=== PATIENT | female | born 1965 | race African-American/Black ===

== ENCOUNTER 2021-02-02 10:55 | Inpatient (IN) | payer OTHER ==
[~2021-02-02] VITALS: Ht 157.5 cm; Wt 70.3 kg
[2021-02-02 10:55] VITALS: BP 165/88
[2021-02-02 11:49] LABS: URINE BILIRUBIN NEGATIVE (Negative); URINE BLOOD TRACE (Negative); URINE CLARITY SL CLOUDY; URINE COLOR YELLOW; URINE GLUCOSE-RANDOM* NEGATIVE (Negative); URINE KETONES NEGATIVE (Negative); URINE PROTEIN (DIPSTICK) 1+ (Negative); URINE SPECIFIC GRAVITY 1.015 (1.005-1.035); URINE UROBILINOGEN 0.2 E.U./dl (0.2-1.0)
[2021-02-02 11:59] LABS: URINE LEUKOCYTES-REFLEX 3+ (Negative); URINE NITRITE-REFLEX POSITIVE (Negative)
[2021-02-02 12:24] LABS: CALCIUM OXALATE 0-3 Few /LPF (None Seen)
[2021-02-02 12:27] LABS: BACTERIA-REFLEX >30 Many /HPF (None Seen); SQUAMOUS 0-3 Few /LPF (0-3); URINE RBC None Seen /HPF (NONE SEEN); URINE WBC-REFLEX >25 Many /HPF (0-5)
[2021-02-02 12:28] LABS: FINE GRANULAR CASTS 0-3 Few /LPF (None Seen); RENAL EPITHELIAL CELLS 0-3 Few /LPF (None Seen)
[2021-02-02 13:25] LABS: ABSOLUTE NEUTROPHILS 5.8 thou/uL (1.4-8.2); BASOPHILS 0.4 % (0.0-2.0); EOSINOPHILS 1.1 % (0.0-3.0); HEMATOCRIT 28.6 % (37.0-47.0); HEMOGLOBIN 9.6 gm/dL (12.0-15.0); LYMPHOCYTES 10.3 % (24.0-44.0); MCH 30.5 pg (26.0-34.0); MCHC 33.7 g/dL (28.0-37.0); MCV 90.7 fL (80.0-100.0); MONOCYTES 6.9 % (1.0-8.0); PLATELET COUNT 288 thou/uL (150-400); POLYS 81.3 % (36.0-66.0); RBC 3.15 mil/uL (4.20-5.00); WBC 7.1 thou/uL (4.0-11.0)
[2021-02-02 13:38] LABS: ALBUMIN 2.7 g/dL (3.4-5.0); CREATININE 4.2 mg/dL (0.6-1.0); TOTAL BILIRUBIN 0.2 mg/dL (0.2-1.0); TOTAL PROTEIN 7.3 g/dL (6.4-8.2)
--- NOTE | 2021-02-02 13:48 | NUR ---
[phone] WALTER HENDRIX- SPOUSE
[2021-02-02 13:57] LABS: CALCIUM 13.5 mg/dL (8.5-10.1)
[2021-02-02 15:44] VITALS: BP 174/92
[2021-02-02 17:26] VITALS: BP 184/95
[2021-02-02] MEDS ORDERED: BACLOFEN 10MG T10 MG PO (17:37)
[2021-02-02] MEDS ORDERED: AMLODIPINE BESY10 MG PO (17:37)
[2021-02-02] MEDS ORDERED: HYDRALAZINE 2525 M1 PO (17:38)
[2021-02-02] MEDS ORDERED: LEVOTHYROXINE50 MCG PO (17:40)
[2021-02-02] MEDS ORDERED: VENLAFAXINE H37.5 M1 PER TUBE (17:41)
[2021-02-02] MEDS ORDERED: CARVEDILOL6.25 M1 PO (17:42)
[2021-02-02] MEDS ORDERED: LEVETIRACE100 MG/1 M PER TUBE (17:42)
[2021-02-02] MEDS ORDERED: CLOPIDOGREL75 MG PO (17:43)
[2021-02-02] MEDS ORDERED: NORVASC5 MG PO (17:43)
[2021-02-02] MEDS ORDERED: LIPITOR 40 MG T40 M1 PO (17:44)
--- NOTE | 2021-02-02 18:34 | NUR ---
PATIENT ADMITTED TO ROOM 360 FROM ED. PATIENT'S AT BEDSIDE TO GIVE HISTORY AND INFORMATION. VSS. NO WOUNDS NOTED DURING SKIN ASSESSMENT. ESPINAL NOTED TO BE DRAINING YELLOW URINE WITH SEDIMENT. PATIENT IS NON VERBAL AND FLACCID, PATIENT'S REPORTS PATIENT IS ABLE TO COMMUNICATE NONVERBALLY. ORBITAL EDEMA AND ORAL EDEMA NOTED. WEDGES FOR TURNING ORDERED. MED REC COMPLETED. SPOKE WITH DR. BANERJEE ABOUT 'S SCHEDULE WITH PATIENT AND HE WILL ASSESS DIET WITH [employer] OFFICER.
[2021-02-02 19:25] VITALS: BP 161/64
[2021-02-03 03:18] VITALS: BP 117/71
[2021-02-03 03:28] LABS: HEMATOCRIT 24.1 % (37.0-47.0); HEMOGLOBIN 8.2 gm/dL (12.0-15.0); MCH 31.1 pg (26.0-34.0); MCV 91.5 fL (80.0-100.0); RBC 2.63 mil/uL (4.20-5.00); WBC 3.6 thou/uL (4.0-11.0)
[2021-02-03 03:37] VITALS: BP 117/77
[2021-02-03 03:47] LABS: ALBUMIN 2.5 g/dL (3.4-5.0); PHOSPHORUS 6.1 mg/dL (2.5-4.9); POTASSIUM 4.4 mmol/L (3.5-5.1)
[2021-02-03 04:22] LABS: CALCIUM 12.4 mg/dL (8.5-10.1)
[2021-02-03 08:25] VITALS: BP 147/84
--- NOTE | 2021-02-03 09:48 | NUR ---
ORDERS RECEIVED FOR EVAL AND TREAT. Pt IS DEPENDENT WITH HER CARES AND MOBILITY. SPOKE WITH SPOUSE WHO STATES HE PROVIDES ALL CARE AND Pt DOES DANIELLE LIFT TO HER ELECTRIC WHEELCHAIR. Pt NOT A CANDIDATE FOR THERAPY IN THE ACUTE SETTING SHE IS DEPENDENT AND THERE ARE NO FUNCTIONAL GOALS.
[2021-02-03 10:53] LABS: CREATININE 4.3 mg/dL (0.6-1.0); PHOSPHORUS 5.5 mg/dL (2.6-4.7)
[2021-02-03 10:55] LABS: CALCIUM 13.5 mg/dL (8.5-10.1)
--- NOTE | 2021-02-03 11:08 | NUR ---
Nepro bolus feeds 5 cans/day with 85 ml H2O flushes before and after each bolus to provide 2125 kcal, 99 gm pro, 1983 ml fluid. Monitor for tolerance.
--- NOTE | 2021-02-03 15:08 | NUR ---
INITIAL ASSESSMENT: Received consult. SW reviewed chart and spoke with nursing and attending physician. Pt was admitted from home due to UTI/LATANYA. Pt with hx of CVA in May 2020. Pt has trach and peg tube in place. SW met with pt and spouse at bedside. Introduced role of SW. Pt's spouse provided info for assessment, as pt is nonverbal. Pt's spouse is the primary caregiver. Pt has been in hospital in [place], [place]. Locally, pt has been at [facility] and [facility]. Pt and spouse live at home. Pt has all DME in place including blane lifts, electric w/c, hospital bed and trach/peg supplies. Pt's spouse states pt does not currently have a PCP. SW offered to provide info for PCPs. Pt's spouse declines and states that he is going through options with her insurance. Pt had a neuro appt scheduled at [facility] recently and it had to be cancelled due to transportation issues. This appt has been rescheduled for April. Pt's spouse states they will likely establish primary care at [facility]. Plan is for pt to discharge home when medically stable. Pt's spouse is open to HH if recommended. SW is following to assist as needed with discharge planning.
--- NOTE | 2021-02-03 15:37 | NUR ---
PATIENT IS NON VERBAL. PATIENT'S IS PRIMARY CAREGIVER AT HOME. HE REPORTS DOING TOTAL CARE INCLUDING PT, OT, ST, PROVIDING AND DOSING TUBE FEEDING, AND "RESEARCHING" HIS OWN TREATMENTS AND SUPLEMENTS. IS DECLINING HEPARIN THAT IS ORDERED AND SAYS THAT "BLOOD THINNERS ARE WHAT GOT US HERE". PATIENT'S ASKS TO DO HER TURNING AND HELP WITH CLEANING OF TRACH AND PEG TUBE. HE IS REQUESTING FOR BACLOFEN TO BE RESTARTED BECAUSE "IT HELPS WITH NEURO FUNCTION". THIS RN CALLED DR. BANERJEE AND ORDERS ARE TO HOLD BACLOFEN DUE TO PATIENT BEING SOMNOLENT AND LESS AWAKE FROM BASELINE.
[2021-02-03 15:38] VITALS: BP 157/88
[2021-02-03 20:00] VITALS: BP 184/107
[2021-02-03] MEDS ORDERED: ENEMEEZ283 MG/5 M RECTAL (20:57)
--- NOTE | 2021-02-03 21:13 | NUR ---
PER CONCERN AND STRONG REQUEST PROVIDER CALLED TO RESTART BACLOFEN, EFFEXOR TO BID, ENEMAEES Q HS AND A NEUROLOGY CONSULT.
--- NOTE | 2021-02-03 22:26 | NUR ---
PT RESTING IN BED. TRACH WITH BLOW BY O2. LUNGS WITH WHEEZES. PT EYES OPEN SOME MOVEMENT, NOTED BUE MUSLCE SPASMS AND HEAD SPASMS. EYES WITH EDEMA, OPTHALMIC MEDS ORDERED. GENERALIZED EDEMA, DISTENDED ABD, PEG TUBE, ESPINAL, IVF INTACT. PRAFO BOOTS INTACT. [place]IL [id number] PTS DECLINED STAFF REPOSITIONING PT WHILE HE WAS HERE, STATED HE WAS DOING IT. VERBALIZED FRUSTRATION WITH PTS HOME MEDS NOT BEING ORDERED AND HEPARIN BEING ORDERED. STATED HE WILL TALK WITH HOSPITALIST IN AM. WANTS NEURO CONSULT. PROVIDER CONTACTED AND HOME MEDS ORDERED PER HUSBANDS REQUEST.
[2021-02-04] VITALS (10 sets, daily range): BP systolic 143–187; BP diastolic 80–104
[2021-02-04 05:40] LABS: HEMATOCRIT 25.2 % (37.0-47.0); HEMOGLOBIN 8.5 gm/dL (12.0-15.0); MCH 31.1 pg (26.0-34.0); MCHC 33.9 g/dL (28.0-37.0); MCV 91.8 fL (80.0-100.0); RBC 2.74 mil/uL (4.20-5.00); WBC 4.5 thou/uL (4.0-11.0)
[2021-02-04 05:57] LABS: ALBUMIN 2.4 g/dL (3.4-5.0); CREATININE 3.6 mg/dL (0.6-1.0); PHOSPHORUS 5.4 mg/dL (2.5-4.9); POTASSIUM 4.1 mmol/L (3.5-5.1)
[2021-02-04 06:01] LABS: CALCIUM 12.8 mg/dL (8.5-10.1)
[2021-02-04 10:09] LABS: KAPPA FREE LIGHT CHAINS 137.7 mg/L (3.3-19.4); KAPPA/LAMBDA RATIO 2.19 (0.26-1.65); LAMBDA FREE LIGHT CHAINS 62.9 mg/L (5.7-26.3)
--- NOTE | 2021-02-04 14:05 | NUR ---
NOE reviewed chart and spoke with nursing and attending physician. ID consulted today. Pt is on IV abx. Possible weekend discharge. NOE met with pt and spouse at bedside. Lengthy discussion regarding discharge plan. Pt's spouse states he has scheduled and outpatient opthamology appt for Sunday, 02/07, and is hoping pt is discharged over the weekend. Pt's spouse is in the process of purchasing a w/c accessible van for transportation. Pt has an electric w/c at bedside. Pt's spouse inquired about tube feeding formula/products through [facility]. NOE contacted [employer] and spoke with On[employer]. Info obtained regarding local providers with DME companies: [facility], [facility] and [facility]. Pt's insurance will need to be checked for coverage and the company will need a physician order. NOE followed back up with pt's spouse to discuss DME options. No preference voiced. NOE faxed referral to [facility], as pt also needs trach supplies and additional DME in the home. NOE spoke with Mita with enteral feeding dept, who states they are able to provide [employer] products. NOE also spoke with [facility] liaison regarding referral. Pt's spouse will be contacted for follow up. Pt's spouse agreeable with weekend discharge and will coordinate tube feeding/DME needs with [facility] after discharge. All necessary DME and tube feeding supplies are in place at home. Pt might need w/c van transportation home. Contact info for [facility] placed in pt's discharge summary. No additional SW needs identified at this time, but is available to assist should needs arise.
[2021-02-04 14:08] LABS: URINE PROTEIN (MG/DL) 40.7 mg/dL (Not Estab.)
--- NOTE | 2021-02-04 18:44 | NUR ---
assumed care of pt at 0700. pt non responsive. husbqand at bedside, helping with patient care. reports eye swelling appears worsening. ID Consulted. hypertensive - physician aware - prn's added. turned q2h and PRN. no significant residuals. bolus feeds. ivf adjusted by renal. anticipate d/c soon.
[2021-02-04 21:06] LABS: IgA 265 mg/dL (87-352); IgG 1193 mg/dL (586-1602); IgM 141 mg/dL (26-217)
--- NOTE | 2021-02-04 22:50 | NUR ---
WOULD LIKE PT TO RECEIVE TYLENOL, HE BELIEVES SHE IS GETTING A FEVER. TEMP CHECKED AND PROVIDER CALLED.
--- NOTE | 2021-02-04 22:52 | NUR ---
PT RESTING IN BED. AND VISITOR THIS EVENING AT BEDSIDE. PT EYES OPEN SPONTANEOUSLY. TRACH INTACT WITH O2 SHEILD. PEG INTACT, ESPINAL TO DD, PRAFO AND SCDS INTACT. STATED HE WILL REPOSITION PT UNTIL HE GOES HOME AT 9. IVF CONTINUE. LUNGS COARSE, EYES EDEMA RED, LESS THAN LAST NIGHT. GENERALIZED EDEMA UPPER BODY. BS POSITIVE. BED ALARM ON.
[2021-02-05 04:14] VITALS: BP 161/82
[2021-02-05 08:30] LABS: HEMATOCRIT 26.4 % (37.0-47.0); HEMOGLOBIN 8.9 gm/dL (12.0-15.0); MCH 30.8 pg (26.0-34.0); MCHC 33.7 g/dL (28.0-37.0); MCV 91.6 fL (80.0-100.0); RBC 2.88 mil/uL (4.20-5.00); RDW 17.2 % (10.5-14.5); WBC 6.6 thou/uL (4.0-11.0)
[2021-02-05 08:41] LABS: ALBUMIN 2.6 g/dL (3.4-5.0); CREATININE 3.7 mg/dL (0.6-1.0); PHOSPHORUS 4.1 mg/dL (2.5-4.9)
[2021-02-05 08:45] LABS: CALCIUM 13.5 mg/dL (8.5-10.1)
[2021-02-05 11:48] VITALS: BP 169/93
--- NOTE | 2021-02-05 12:21 | NUR ---
CARE ASSUMED THIS AM, PT OPENS EYES AT TIMES, APHASIC AND UNABLE TO FOLLOW COMMANDS. HAS A TRACH WITH TRACH SHIELD WITH O2. PEG TUBE WITH TF BOLUS PER ORDER. CHRONIC ESPINAL IN PLACE AND PATENT. AT BEDSIDE. FALL PRECAUTIONS IN PLACE. WILL CONTINUE TO MONITOR
[2021-02-05 16:26] VITALS: BP 175/95
[2021-02-05 20:09] VITALS: BP 178/110
--- NOTE | 2021-02-05 22:39 | NUR ---
CONTINUES ON 35 % TRACH SHIELD. HAD HIS OWN SUCTION EQUIPEMENT THAT HE USED TO SUCTION PATENT. ADICSED THAT HE ALLOW THE RN TO SUCTION WITH OUR EQUIPEMENT. HE DID NOT VERBALIZED UNDERSTANDING OR ACKNOWLEDGEMENT. ALSO (WALTER) VERY CONCERNED ABOUT HER BOWEL MOVEMENTS. HE NORMALLY DOES AN ENEMA DAILY ON BJORN. I CALLED BRAIN PICKER LABOR OPERATOR AND SHE DID NOT BELIEVE THAT AN ENEMA IS CLINIALLY INDICATED. LABOR OPERATOR DID ORDER A SUPPOSITORY TO HELP WITH THE PERCIEVED CONSTIPATION. HER ABDOMEN IS SOFT AND NONE DISTENDED
[2021-02-06] VITALS (10 sets, daily range): BP systolic 151–195; BP diastolic 92–108
--- NOTE | 2021-02-06 03:32 | NUR ---
CONTINUES ON 35% FIO2 OXYGEN. SHE HAS CALMED DOWN TONIGHT, ABLE TO REST AND HAS EYES CLOSED THEY ARE ABLE. BLOOD PRESSURE AT 159/95. HYDRALIZE GIVEN AND LOPRESSOR GIVEN TONIGHT.
[2021-02-06 05:29] LABS: HEMATOCRIT 24.7 % (37.0-47.0); HEMOGLOBIN 8.5 gm/dL (12.0-15.0); MCH 31.1 pg (26.0-34.0); MCHC 34.2 g/dL (28.0-37.0); MCV 90.7 fL (80.0-100.0); RBC 2.72 mil/uL (4.20-5.00); WBC 6.7 thou/uL (4.0-11.0)
[2021-02-06 05:58] LABS: ALBUMIN 2.4 g/dL (3.4-5.0); ANION GAP < 0 mmol/L (7-16); BUN 49 mg/dL (7-18); CHLORIDE 106 mmol/L (98-107); CO2 31 mmol/L (21-32); CREATININE 3.1 mg/dL (0.6-1.0); GLUCOSE 98 mg/dL (74-106); PHOSPHORUS 3.6 mg/dL (2.5-4.9); POTASSIUM 3.6 mmol/L (3.5-5.1); SODIUM 136 mmol/L (136-145)
[2021-02-06 06:12] LABS: CALCIUM 13.4 mg/dL (8.5-10.1)
--- NOTE | 2021-02-06 12:20 | NUR ---
CARE ASSUMED THIS AM, OPENS EYES AT TIMES, UNRESPONSIVE AND UNABLE TO FOLLOW COMMANDS. TRACH IN PLACE WITH TRACH COLLAR AND OXYGEN. PEG TUBE AND ESPINAL IN PLACE. PT REPOSITION EVERY 2 HOURS. ORAL CARE DONE BY PT . TF ON HOLD, DUE TO HIGH RESIDUAL. FALL PRECAUTIONS IN PLACE, WILL CONTINUE TO MONITOR
--- NOTE | 2021-02-06 14:39 | EKG ---
[place] [address] [facility] [place] [address] ELECTROCARDIOGRAM REPORT Name: BJORN HENDRIX Room #: 360- ADM IN M.R.#: [id number] Admission: 02/02/21 Attend Phys: Jim Baig MD Discharge: Date of : 69 Report #: [id number] [facility] Test Date: 2021-02-06 Test Time: 01:07:12 Pat Name: BJORN HENDRIX Department: Room: 360 P Gender: F Manager Cardiovascular: [id number] : 1965 Requested By: Aleisha Toscano Order Number: [id number] MD: Lan Adams Measurements Intervals [place] Rate: 120 P: 56 WA: 163 QRS: -31 QRSD: 88 T: 113 QT: 288 QTc: 407 Interpretive Statements Sinus tachycardia Ventricular premature complex Left axis deviation Nonspecific ST and T wave abnormality Artifact in lead(s) I,II,III,aVR,aVL,aVF and baseline wander in lead(s) I,III,aVR,V1,V3,V5,V6 No previous ECG available for comparison Electronically Signed On 02-06-2021 14:39:41 CDT by Lan Adams [email or web address] <ELECTRONICALLY SIGNED> By: Lan Adams MD, [facility] 02/06/21 1439 6 6 Lan Adams MD, [facility] /EPI
[2021-02-07 05:16] VITALS: BP 120/69
--- NOTE | 2021-02-07 05:44 | NUR ---
PT REMAINS NONVERBAL. DOES NOT FOLLOW COMMANDS. EYES OPEN SPONTANEOUSLY. SCLERA HAVE 3+ EDEMA. COPIOUS CAMPO SPUTUM NOTED WITH SUCTIONING. TS STILL AT 35%. SATS WNL. BP ELEVATED AT START OF SHIFT. HYDRALAZINE GIVEN IV DUE TO HIGH RESIDUALS AND HYPOACTIVE BOWEL SOUNDS. HELD ALL PER TUBE MEDS. PT HAD NOT HAD A BM SINCE 01/02. SPOKE WITH PT'S . HE AGREED FOR HER TO RECEIVE SUPPOSITORY. PT HAS HAD A LG SOFT BM THIS AM. UPON CHECKING AM RESIDUAL GI DRAINAGE APPEARED DARKER BROWN WITH POSSIBLE BLOOD IN IT. NOTIFIED TOASTER ELEMENT REPAIRER Lanie YEPEZ. SHE STATED TO LET DAY SHIFT NOTIFY HER DR AND THEY ARE TO DECIDE WHAT TO DO. BP HAS SINCE COME DOWN THIS AM NOTIFIED TOASTER ELEMENT REPAIRER OF AM BP ALSO. BATH COMPLETED BED CHANGED. TRACH DRAINAGE IS FOWL SMELLING. ORAL CARE AND TRACH CARE DONE. MOISTURE BARRIER APPLIED TO BUTOCKS AFTER LG SOFT BROWN STOOL. IV FLUIDS INFUSING L FA.
[2021-02-07 06:10] LABS: HEMATOCRIT 29.2 % (37.0-47.0); HEMOGLOBIN 9.9 gm/dL (12.0-15.0); MCH 31.1 pg (26.0-34.0); MCV 91.4 fL (80.0-100.0); RBC 3.19 mil/uL (4.20-5.00); RDW 17.1 % (10.5-14.5); WBC 8.2 thou/uL (4.0-11.0)
[2021-02-07 06:33] LABS: ALBUMIN 2.7 g/dL (3.4-5.0); CREATININE 3.1 mg/dL (0.6-1.0); PHOSPHORUS 3.8 mg/dL (2.5-4.9); POTASSIUM 3.6 mmol/L (3.5-5.1)
[2021-02-07 06:48] LABS: CALCIUM 13.2 mg/dL (8.5-10.1)
[2021-02-07 07:55] VITALS: BP 140/70
--- NOTE | 2021-02-07 09:50 | NUR ---
Nutrition: When/if appropriate to restart tube feeds, suggest consideration of reglan due to high residuals. Also consider change to continuous regimen to assess for improved tolerance...Nepro at 45 mL/hr goal rate.
[2021-02-07 13:01] VITALS: BP 151/97
--- NOTE | 2021-02-07 13:05 | NUR ---
ASSUMED PT CARE AT SHIFT CHANGE. PT HAD CONCERNS ON COMMUNICATION/COORDINATION OF CARE. THIS RN CONTACTED PHYSICIAN, CM, AND PATIENT ASSISTANT COACH TO SPEAK WITH PT . PT STATES SATISFACTION WITH CLARITY OF COMMUNICATION. PT WILL BE DC'D TODAY TO ALLOW FOR OPTHAMOLOGIST APPOINTMENT. PT WOULD BENEFIT FROM ADDITIONAL RESOURCES IN COMMUNITY. PT HAS PLAN TO CONTACT HIS INSURANCE CM [facility] FOR CONTINUATION OF CARE AFTER LABS ARE DRAWN PER [facility] RECOMMENDATIONS. PT CONTINUES TO HAVE DARKER RESIDUAL, SAMPLE NOT SENT TO LAB PER DR BANERJEE.
[2021-02-07] MEDS ORDERED: BACTRIM DS TAB1 EACH PO (13:57)
[2021-02-07] MEDS ORDERED: PROTONIX40 M4 PO (13:59)
--- NOTE | 2021-02-07 14:04 | NUR ---
DISCHARGE NOTE: ONE reviewed chart and spoke with nursing and attending physician. Pt is medically stable for discharge today. Pt has an outpatient opthamology appt this afternoon at 1515. NOE met with pt, spouse and pt's sister at bedside to discuss discharge plan. Pt's spouse is aware that referral has been sent to [facility] for tube feeding, trach supplies and additional DME. Pt's spouse to follow up with [facility] after discharge. NOE offered to arrange w/c van transportation for pt to go to her opthamology appt today and then from the appt to home. Transportation arrangements approved by Director of Case Mgmt. Pt's spouse agreeable with transportation. NOE discussed HH services. Pt's spouse declines HH at this time, stating that he has a list of in-network providers and he will start "interviewing" them once they get home. SW encouraged primary care to be established for any HH/DME orders. NOE provided pt's spouse with [employer] and list of transportation agencies per his request. Wheelchair van transportation scheduled for [phone] per [facility] [employer]. Pt and family all aware and in agreement with discharge plan. Contact info for [facility] placed in pt's discharge summary. No additional SW needs identified at this time, but is available to assist should needs arise. [facility]--[address] [facility] [id number] PT'S HOME ADDRESS--[id number] [place] [address]
[2021-02-07 14:08] VITALS: BP 158/92
[2021-02-07 14:45] VITALS: BP 158/92
--- NOTE | 2021-02-07 14:51 | NUR ---
PT DC'D WITH AND SISTER. TRANSPORT WC VAN USED TO TAKE PT TO OPTHAMOLOGIST APPT. PRESCRIPTIONS TO PHARMACY, EDUCATION PROVIDED TO , NO FURTHER QUESTIONS.
[2021-02-07 16:07] LABS: GLOBULIN TOTAL 3.5 g/dL (2.2-3.9); M-SPIKE Not Observed g/dL (Not Observed)
[2021-02-07 20:07] LABS: IgA 306 mg/dL (87-352); IgG 1387 mg/dL (586-1602); IgM 167 mg/dL (26-217)
== END 2021-02-07 14:45 | disposition home or self-care (01) | DRG 871 ==
LOC: ER 10:55 → 3W 15:23 → EROBS 15:23 → 3W 16:09
PROVIDERS: Hospitalist; Internal Medicine Nephrology; Physician Assistant; ADMIT Hospitalist; ATTEND Hospitalist
DX: A41.9 Sepsis, unspecified organism (principal); N17.0 Acute kidney failure with tubular necrosis; J18.9 Pneumonia, unspecified organism; I61.3 Nontraumatic intracerebral hemorrhage in brain stem; E43 Unspecified severe protein-calorie malnutrition; N39.0 Urinary tract infection, site not specified; E46 Unspecified protein-calorie malnutrition; E83.52 Hypercalcemia; E03.9 Hypothyroidism, unspecified; G89.29 Other chronic pain; E87.6 Hypokalemia; I12.9 Hypertensive chronic kidney disease with stage 1 through stage 4 chronic kidney disease, or unspecified chronic kidney disease; N18.9 Chronic kidney disease, unspecified; E83.39 Other disorders of phosphorus metabolism; Z20.822 Contact with and (suspected) exposure to COVID-19; Z68.28 Body mass index [BMI] 28.0-28.9, adult; Z74.01 Bed confinement status; Z79.899 Other long term (current) drug therapy; Z86.73 Personal history of transient ischemic attack (TIA), and cerebral infarction without residual deficits
CPT/HCPCS: 10879